=== PATIENT | male | born 1955 | race Caucasian/White ===

== ENCOUNTER 2019-06-04 12:59 | Day surgery (SDC) | payer OTHER ==
[2019-06-04] MEDS ORDERED: LIDOCAINE 4% SOLUTION 50 ML BTL (14:12)
[2019-06-04] MEDS ORDERED: MIDAZOLAM 1 MG/ML 2 ML INJ ×2 (14:50→14:51)
[2019-06-04] MEDS ORDERED: FENTAnyl 50 MCG/ML VIAL (14:51)
== END 2019-06-04 16:00 | disposition home or self-care (01) ==
LOC: GIL 16:00
DX: Z12.11 Encounter for screening for malignant neoplasm of colon (principal); K64.9 Unspecified hemorrhoids; K29.00 Acute gastritis without bleeding; Z86.010 Personal history of colon polyps
CPT/HCPCS: 43239; 88305; 88312